=== PATIENT | male | born 1950 | race Native Hawaiian/Other Pacific Islander ===

== ENCOUNTER 2016-05-30 09:58 | Outpatient (CLI) | payer OTHER ==
[~2016-05-30 09:58] MED LIST: ACEBUTOLOL PO; CARBINOXAMIN OR; CYCL10TA35 PO; DICL75TA4 PO; DIOVAN HC1 PO; GEMFIBROZIL PO; LIPITOR80 MG PO; QUININE SULFAT324 MG PO; TAMS0.4C PO; TRAM50TA PO; [UNRECOGNIZED DRUG - OTHER] PO
[2016-05-30 11:00] LABS: PLATELET COUNT 302 K/uL (142-355)
== END 2016-05-30 20:08 | disposition home or self-care (01) ==
LOC: LABW 09:58
PROVIDERS: Internal Medicine Gastroenterology
DX: K50.10 Crohn's disease of large intestine without complications (principal); D64.9 Anemia, unspecified
CPT/HCPCS: 36415; 80053; 82306; 82607; 82728; 82746; 83540; 83550; 83993; 85027

== ENCOUNTER 2016-08-25 09:10 | Outpatient (CLI) | payer OTHER ==
[2016-08-25 09:53] LABS: PLATELET COUNT 468 K/uL (142-355)
[2016-08-25 10:03] LABS: POTASSIUM 3.9 mmol/L (3.6-5.2)
== END 2016-08-25 11:00 | disposition home or self-care (01) ==
LOC: LABW 09:10
PROVIDERS: Internal Medicine Gastroenterology
DX: K50.10 Crohn's disease of large intestine without complications (principal)
CPT/HCPCS: 36415; 80053; 82542; 82728; 83540; 83550; 83890; 83892; 83896; 83900; 83912; 83993; 85027

== ENCOUNTER 2016-09-20 13:10 | Outpatient (CLI) | payer OTHER ==
[~2016-09-20] VITALS: Ht 182.9 cm; Wt 107.5 kg
[2016-09-20 13:20] VITALS: BP 122/75; TEMP 98.4
[2016-09-20 14:50] VITALS: BP 115/69
== END 2016-09-20 14:50 | disposition home or self-care (01) ==
LOC: INF 13:10
DX: K50.90 Crohn's disease, unspecified, without complications (principal); D50.8 Other iron deficiency anemias
CPT/HCPCS: 96365; J2916

== ENCOUNTER 2016-09-21 17:19 | Outpatient (CLI) | payer OTHER | END 2016-09-21 18:20 | disposition home or self-care (01) | LOC: LABW 17:19 | DX: K50.10 Crohn's disease of large intestine without complications (principal); Z79.899 Other long term (current) drug therapy; Z51.81 Encounter for therapeutic drug level monitoring | CPT/HCPCS: 36415; 86480; 86706 ==

== ENCOUNTER 2016-09-27 10:49 | Outpatient (CLI) | payer OTHER ==
[~2016-09-27] VITALS: Ht 182.9 cm; Wt 107.5 kg
[2016-09-27 11:00] VITALS: BP 133/70; TEMP 98.1
[2016-09-27 12:45] VITALS: BP 129/68
== END 2016-09-27 19:11 | disposition home or self-care (01) ==
LOC: INF 10:49
DX: K50.10 Crohn's disease of large intestine without complications (principal)
CPT/HCPCS: 96365; J2916

== ENCOUNTER 2016-10-04 10:49 | Outpatient (CLI) | payer OTHER ==
[~2016-10-04] VITALS: Ht 182.9 cm; Wt 107.5 kg
[2016-10-04 11:00] VITALS: BP 143/77; TEMP 98.3
[2016-10-04 12:40] VITALS: BP 125/73; TEMP 98.3
== END 2016-10-04 13:00 | disposition home or self-care (01) ==
LOC: INF 10:49
DX: K50.10 Crohn's disease of large intestine without complications (principal)
CPT/HCPCS: 96365; J2916

== ENCOUNTER 2016-12-01 09:55 | Outpatient (CLI) | payer OTHER ==
[2016-12-01 10:53] LABS: PLATELET COUNT 282 K/uL (142-355)
[2016-12-01 11:20] LABS: POTASSIUM 3.5 mmol/L (3.6-5.2)
== END 2016-12-01 10:55 | disposition home or self-care (01) ==
LOC: LABW 09:55
PROVIDERS: Physician Assistant
DX: D50.8 Other iron deficiency anemias (principal); K50.10 Crohn's disease of large intestine without complications
CPT/HCPCS: 36415; 80053; 82728; 83540; 83550; 85027

== ENCOUNTER 2017-02-10 10:51 | Outpatient (CLI) | payer OTHER ==
[2017-02-10 11:56] LABS: PLATELET COUNT 269 K/uL (142-355)
[2017-02-10 12:12] LABS: POTASSIUM 4.2 mmol/L (3.6-5.2)
== END 2017-02-10 19:07 | disposition home or self-care (01) ==
LOC: LABW 10:51
PROVIDERS: Internal Medicine Gastroenterology
DX: D50.8 Other iron deficiency anemias (principal); K50.10 Crohn's disease of large intestine without complications
CPT/HCPCS: 36415; 80053; 82607; 82728; 82746; 83540; 83550; 85027; 86140

== ENCOUNTER 2017-03-28 11:05 | Outpatient (CLI) | payer OTHER | END 2017-03-28 12:05 | disposition home or self-care (01) | LOC: RAD 11:05 | DX: M54.12 Radiculopathy, cervical region (principal) ==

== ENCOUNTER 2017-06-26 11:21 | Outpatient (CLI) | payer OTHER ==
[2017-06-26 11:38] LABS: PLATELET COUNT 309 K/uL (142-355)
[2017-06-26 12:45] LABS: POTASSIUM 3.4 mmol/L (3.6-5.2)
== END 2017-06-26 19:21 | disposition home or self-care (01) ==
LOC: LABW 11:21
PROVIDERS: Internal Medicine Gastroenterology
DX: K50.10 Crohn's disease of large intestine without complications (principal); Z13.820 Encounter for screening for osteoporosis; R79.0 Abnormal level of blood mineral
CPT/HCPCS: 36415; 80053; 82728; 83540; 83550; 85027; 86140

== ENCOUNTER 2017-12-08 09:38 | Outpatient (CLI) | payer OTHER ==
[2017-12-08 10:37] LABS: PLATELET COUNT 233 K/uL (142-355)
[2017-12-08 10:48] LABS: POTASSIUM 3.9 mmol/L (3.6-5.2)
== END 2017-12-08 19:38 | disposition home or self-care (01) ==
LOC: LABW 09:38
PROVIDERS: Internal Medicine Gastroenterology
DX: K50.80 Crohn's disease of both small and large intestine without complications (principal)
CPT/HCPCS: 36415; 80053; 82306; 82607; 82746; 85027; 85651; 86140

== ENCOUNTER 2018-01-25 10:45 | Outpatient (CLI) | payer OTHER | END 2018-01-25 20:34 | disposition home or self-care (01) | LOC: RAD 10:45 | DX: S93.402A Sprain of unspecified ligament of left ankle, initial encounter (principal) ==

== ENCOUNTER 2018-04-30 11:04 | Outpatient (CLI) | payer OTHER ==
[2018-04-30 11:22] LABS: PLATELET COUNT 209 K/uL (142-355)
[2018-04-30 12:11] LABS: POTASSIUM 3.4 mmol/L (3.6-5.2)
== END 2018-04-30 20:26 | disposition home or self-care (01) ==
LOC: LABW 11:04
PROVIDERS: Internal Medicine Gastroenterology
DX: K50.80 Crohn's disease of both small and large intestine without complications (principal)
CPT/HCPCS: 36415; 80053; 82306; 82607; 82746; 85027; 85651; 86140

== ENCOUNTER 2019-06-20 10:34 | Emergency (ER) | payer OTHER ==
[~2019-06-20] VITALS: Ht 180.3 cm; Wt 106.1 kg
[2019-06-20 10:47] VITALS: BP 167/94; TEMP 98.1
== END 2019-06-20 12:11 | disposition home or self-care (01) ==
LOC: ED 10:34
DX: K11.21 Acute sialoadenitis (principal)
CPT/HCPCS: 96372; 99282; J2270

== ENCOUNTER 2019-10-28 10:26 | Outpatient (CLI) | payer OTHER | END 2019-10-28 21:49 | disposition home or self-care (01) | LOC: RAD 10:26 | DX: M26.621 Arthralgia of right temporomandibular joint (principal) ==

== ENCOUNTER 2019-11-06 09:20 | Outpatient (CLI) | payer OTHER ==
[2019-11-06 14:14] LABS: PLATELET COUNT 255 K/uL (142-355)
[2019-11-06 17:14] LABS: POTASSIUM 3.7 mmol/L (3.6-5.2)
== END 2019-11-06 20:23 | disposition home or self-care (01) ==
LOC: LABW 09:20
PROVIDERS: Internal Medicine Gastroenterology
DX: K50.10 Crohn's disease of large intestine without complications (principal); Z79.899 Other long term (current) drug therapy; E55.9 Vitamin D deficiency, unspecified
CPT/HCPCS: 36415; 80053; 82306; 85027; 86140; 86480; 86704; 86706

== ENCOUNTER 2020-02-15 09:45 | Outpatient (CLI) | payer OTHER ==
[2020-02-15 10:14] LABS: POTASSIUM 4.3 mmol/L (3.6-5.2)
== END 2020-02-15 19:06 | disposition home or self-care (01) ==
LOC: RAD 09:45
PROVIDERS: Nurse Practitioner Family
DX: K59.00 Constipation, unspecified (principal); R10.9 Unspecified abdominal pain
CPT/HCPCS: 80053; 82150; 83690

== ENCOUNTER 2020-09-07 12:21 | Observation (INO) | payer OTHER ==
[~2020-09-07] VITALS: Ht 156.2 cm; Wt 104.8 kg
[2020-09-07 12:43] VITALS: BP 143/82; TEMP 97.7
[2020-09-07 13:16] LABS: PLATELET COUNT 204 K/uL (142-355)
[2020-09-07 13:31] LABS: POTASSIUM 4.5 mmol/L (3.6-5.2); SODIUM 136 mmol/L (136-145)
[2020-09-07 14:00] VITALS: BP 143/82; TEMP 97.7; Ht 156.2 cm; Wt 104.8 kg
--- NOTE | 2020-09-07 14:00 | NUR ---
PATIENT ADMITTED DIRECT ADMIT FROM OFFICE. PATIENT ASSESSMENT COMPLETED. IV X2 ATTEMPT WITH SUCCESSFUL 20G TO THE LEFT FOREARM. PATIENT ORIENTED TO ROOM AND CALL LIGHT. PATIENT REPORTS NO VOMITING OR NAUSEA AT TIME OF ADMISSION. PATIENT INSTRUCTED WHEN HE HAD A BOWEL MOVEMENT TO GO IN THE HALF HAD TO COLLECT SPECIMEN AND A URINE SAMPLE. PATIENT VOICED UNDERSTANDING. PATIENT PALCED ON TELE AND CONTINUOUS PULSE OX. BELONGINGS AT THE BEDSIDE AND FAMILY IS A WELL.
[2020-09-07 16:00] VITALS: BP 125/59; TEMP 97.8
[2020-09-07] MEDS ORDERED: LANTUS SOL100 UNIT/M SC (16:13)
[2020-09-07] MEDS ORDERED: PANTOPRAZOLE 40MG TA PO (16:14)
[2020-09-07] MEDS ORDERED: GLIP10TA55 PO (16:15)
[2020-09-07] MEDS ORDERED: AZATHIOPRINE50 MG PO (16:18)
[2020-09-07] MEDS ORDERED: OZEMPIC2 MG/1.5 M SC (16:22)
[2020-09-07] MEDS ORDERED: TRAMADOL HYDROC50 MG PO (16:24)
--- NOTE | 2020-09-07 17:00 | NUR ---
LABS AND RESULTS REPORTED TO . NEW ORDERS GIVEN TO START HOME MEDICATIONS AND O&P TEST TO STOOL THAT WAS COLLECTED.
[2020-09-07 19:41] VITALS: BP 131/68; TEMP 98.2
[2020-09-07 23:48] VITALS: BP 114/69; TEMP 98.2
--- NOTE | 2020-09-07 23:48 | NUR ---
LATE ENTRY FROM 2100: SPECIAL EDUCATION TEACHER CALLED DR ONEIL AND ASKED HER IF SHE HAD ANY OTHER ORDERS REGUARDING THE PATIENT NEW C-DIFF STATUS. GAVE NO NEW ORDERS AT THIS TIME.
--- NOTE | 2020-09-07 23:51 | NUR ---
PATIENT RESTING QUIETLY. DENIES ANY PAIN
--- NOTE | 2020-09-08 03:15 | NUR ---
PATIENT IS RESTING QUIETLY. DENIES NAY PAIN
[2020-09-08 03:59] VITALS: BP 111/67; TEMP 98.1
--- NOTE | 2020-09-08 07:02 | NUR ---
Patient was admitted with abdominal pain, nausea, vomiting, diverticulitis and RD read all MD's notes and is 5'1.5 inches and weight is at 231.2 lbs. and is a 70YOM and has high cholesterol and reviewed all medicaittions and is receiving insulin, glipizide, and other multiple medicaitons and labs reveal WBC, BUN, Creat, gl 252,AST, T Protein all elevated and was NPO and was receiving Prcal with IV medicaitons and read MD's notes for more information and detials-DARI boyce. Has Dx. of AKF, dehydration, anorexia, N/V, HTN, COPD, tobacco use, CKD Stage III, Hyperlipidemia. IBW = 110+/-10% 99 to 121 lbs.) and Kcal needs for IBW = x 30 = 1500, x 35 = 1750, x 40 = 2000 kcal/day, protein needs x 1.0 = 50 and up to 1.5 = 75 grams per day and fluids x 30 = 1500 and x 40 = 2000 ml/cc per day. Weight is at 231.2 and BMI = 42.9 and is Class III Obesity and is 210% of IBW. RD Recommendations: 1-Monitor Labs 2-PT to work with the patient as tolerated 3-OT to work with the patient as tolerated 4-[employer] food preferneces and offer substitutes with all meals 5-Increase fluids as tolerated per MD d/t Dx. 6-Make sure hydrated 7-CLD should not be on >24 hours 8-Advance to a FLD not on >48 hours 9Advnace to solid foods and may want to try a 1500 or 1800 Calorie High Fiber diet and if will follow add Low Fat Low Cholesterol or cardiac renal but if won't follow have patient ot sign a dietar refusal form
[2020-09-08 08:00] VITALS: BP 98/60; TEMP 97.4
--- NOTE | 2020-09-08 08:00 | NUR ---
ORDERS PLACED FOR LABS THIS MORNING TO FOLLOW UP ON ABDNORMAL RESULTS FROM YESTERDAY THAT INCLUDED ELEVATED WBC, GLUCOSE, AST.
[2020-09-08 08:30] LABS: PLATELET COUNT 171 K/uL (142-355)
[2020-09-08 08:56] LABS: POTASSIUM 3.6 mmol/L (3.6-5.2)
[2020-09-08 12:00] VITALS: BP 122/75; TEMP 97.4
--- NOTE | 2020-09-08 14:10 | NUR ---
PATIENT GIVEN DISCHAGE INSTRUCTIONS WITH PRESENT IN THE ROOM. PATIENT ENCOURAGED TO INCREASE FLUID INTAKE AND FOLLOW UP WITH ON Monday09/08/20 AT 1100 FOR REPEAT CMP. PATIENT ALSO ADVISED IF HE CONTINUED WITH ANY SEVERE ABDOMINAL PAIN, DIARRHEA, NAUSEA OR VOMITING. IV 20 G REMOVED FROM THE LEFT FOREARM AND SECURED WITH TAPE. PATIENT NOTED WITH SOME BLEEDING AFTER IV REMOVED WITH TIP INTACT AREA CLEANED AND SECURED WITH 4X4 FOLLOWED BY TAYLOR. PATIENT TAKEN VIA WHEELCHAIR TO FRONT ER ENTRANCE IN NO ACUTE DISTRESS WITH AT HIS SIDE.
== END 2020-09-08 14:10 | disposition home or self-care (01) ==
LOC: MED/SURG 12:21
PROVIDERS: ADMIT Family Medicine; ATTEND Family Medicine
DX: K50.90 Crohn's disease, unspecified, without complications (principal); R11.10 Vomiting, unspecified; E13.65 Other specified diabetes mellitus with hyperglycemia
CPT/HCPCS: 80053; 81000; 82550; 82948; 83735; 84100; 84439; 84443; 84484; 85027; 85610; 87015; 87040; 87045; 87324; 87328; 87329; 87449; 87635; 87899; 93005; 96365; 96366; 96367; 96372; 96375; 99220; G0378; G0379; J0744; J1815; J2405; J2543; J3475; Q9963; U0003

== ENCOUNTER 2021-01-21 10:59 | Inpatient (IN) | payer OTHER ==
[~2021-01-21] VITALS: Ht 175.3 cm; Wt 100.5 kg
[~2021-01-21 10:59] MED LIST changes: +AZATHIOPRINE50 MG PO; +GLIP10TA55 PO; +LANTUS SOL100 UNIT/M SC; +OZEMPIC2 MG/1.5 M SC; +PANTOPRAZOLE 40MG TA PO; +TRAMADOL HYDROC50 MG PO
[2021-01-21 12:46] LABS: PLATELET COUNT 278 K/uL (142-355)
[2021-01-21 13:06] LABS: POTASSIUM 4.1 mmol/L (3.6-5.2); SODIUM 133 mmol/L (136-145)
[2021-01-21 15:34] VITALS: BP 101/66; TEMP 97.9; Ht 175.3 cm; Wt 100.5 kg
--- NOTE | 2021-01-21 16:32 | NUR ---
PT FINSHED ORAL CONTRAST AT 1615. RAD NOTIFIED.
[2021-01-21 20:00] VITALS: BP 147/72; TEMP 98.3
--- NOTE | 2021-01-21 20:19 | NUR ---
PT VOMITED APPROX 1000 ML OF DARK BROWN EMESIS. PT STATED THAT HE THREW UP THE CONTRAST AFTER THE CT. MEDICATED PT WITH ZOFRAN 4 MG IVSP.
--- NOTE | 2021-01-21 20:30 | NUR ---
PT WAS GIVEN REGLAN 10 MG IVSP GIVEN. PT DOES HAVE BOWEL SOUND IN ALL 4 QUADRANTS. NO VOMITING AT THIS TIME.
[2021-01-22 00:09] VITALS: BP 85/55; TEMP 98.5
--- NOTE | 2021-01-22 03:55 | NUR ---
PT HAS HAD CIPRO 400 MG IVPB AND ZOSYN IVPB ORDERED. PT CONTINUES TO REST WITH EYES CLOSED. PT WITHOUT NAUSEA/VOMITING OR COMPLAINTS OF PAIN.
[2021-01-22 04:00] VITALS: BP 97/62; TEMP 98.4
--- NOTE | 2021-01-22 05:54 | NUR ---
PT IS IN THE BATHROOM.PT STATES THAT HE IS FEELING BETTER NOW. PT STATES THAT HE HAS HAD 4 BM THIS SHIFT.
[2021-01-22 07:21] LABS: PLATELET COUNT 257 K/uL (142-355)
[2021-01-22 07:23] LABS: POTASSIUM 3.7 mmol/L (3.6-5.2)
[2021-01-22 08:00] VITALS: BP 113/66; TEMP 97.8
[2021-01-22 12:00] VITALS: BP 107/69; TEMP 97.6
[2021-01-22 14:04] LABS: PLATELET COUNT 237 K/uL (142-355)
[2021-01-22 14:22] LABS: POTASSIUM 3.4 mmol/L (3.6-5.2)
[2021-01-22 16:00] VITALS: BP 129/70; TEMP 98
--- NOTE | 2021-01-22 17:51 | NUR ---
PT SITTING UP IN BED TALKING ON CELLPHONE. DENIES ANY PAIN/DISCOMFORT. PT C/O DECREASED URINE OUTPUT. PTS DIET CHANGED FROM NPO TO CLEAR LIQUIDS. IV SITE TO LAC INTACT WITH NO SWELLING OR REDNESS NOTED. ENCOURAGED INCREASE OF PO FLUIDS. PT HAS NOT HAD ANY N/V THIS SHIFT. PT COMPLIANT WITH MEDS AND TREATMENT. NO VOICED COMPLAINTS.
[2021-01-22 20:00] VITALS: BP 119/63; TEMP 98
[2021-01-23] VITALS: BP 109/58; TEMP 99.2
[2021-01-23 04:00] VITALS: BP 137/73; TEMP 97.6
[2021-01-23 04:13] LABS: PLATELET COUNT 220 K/uL (142-355)
[2021-01-23 04:42] LABS: POTASSIUM 3.8 mmol/L (3.6-5.2)
[2021-01-23 08:00] VITALS: BP 176/92; TEMP 98.1
[2021-01-23 12:00] VITALS: BP 145/80; TEMP 97.3
--- NOTE | 2021-01-23 14:58 | NUR ---
PT AWAKE AND ALERT. PT DENIES ANY PAIN/DISCOMFORT TODAY. STATED "I RESTED BETTER LAST NIGHT THAN I HAVE THE LAST FEW NIGHTS." PT WAS CHANGED FROM SOFT DIET TO NPO STATUS PER PCP PRIOR TO BREAKFAST. PT ANXIOUS TO GO HOME,REQUESTED TO TALK TO HIS PCP. IVF INFUSING AT 125ML/HR OF NS ORDERED IN THE AM. PER PCP PTS IVF CHANGED TO PRO-KRISTINE AT 83ML/HR AND RESTART LEVEMIR 20 UNITS QPM AND ORDERS SCANNED TO PHARMAY AND ON EMAR. PT WANTS TO SIGN OUT OF FACILITY AMA. REFUSES TO "SPEND ANOTHER NIGHT IN THE HOSPITAL." PT POLITE AND RESPECTFUL BUT IS READY TO GO HOME. NAD NOTED. IV SITE TO LAC INTACT WITH NO SWELLING OR REDNESS NOTED. PRO-KRISTINE INFUSING ORDERED.
[2021-01-23 16:00] VITALS: BP 162/85; TEMP 97.9
--- NOTE | 2021-01-23 19:14 | NUR ---
PT REFUSED TX AND WANTED TO SIGN "AMA" FORM TO GO HOME. PCP CONSULTED WITH PT AT BEDSIDE AND PT AGREED TO BE COMPLIANT WITH TX AND STAY AT FACILITY. PTS IVF PRO-KRISTINE INFUSING AT 83 ML/HR ORDERED. PT ON NPO STATUS AND AGREES TO BE COMPLIANT. NO N/V OR PAIN/DISCOMFORT VOICED..
[2021-01-23 20:00] VITALS: BP 142/84; TEMP 98
[2021-01-24 00:23] VITALS: BP 130/69; TEMP 97.5
[2021-01-24 04:00] VITALS: BP 122/63; TEMP 98.3
[2021-01-24 05:14] LABS: PLATELET COUNT 217 K/uL (142-355)
[2021-01-24 05:29] LABS: POTASSIUM 4.1 mmol/L (3.6-5.2)
[2021-01-24 08:00] VITALS: BP 127/67; TEMP 97.8
--- NOTE | 2021-01-24 08:30 | NUR ---
PT LAYING IN BED WATCHING TV. DENIES ANY PAIN/DISCOMFORT. PT HAD A BM X1 THIS AM, SMALL AND LOOSE STOOLS. PT CONTINUES TO BE ON NPO STATUS. BOWEL SOUNDS HYPOACTIVE. ABDOMEN SOFT AND NON-TENDER. IV SITE TO LEFT ARM INTACT WITH NO SWELLING OR REDNESS NOTED. NO VOICED COMPLAINTS.
[2021-01-24 12:00] VITALS: BP 134/75; TEMP 97.8
--- NOTE | 2021-01-24 13:33 | NUR ---
PTS IV SITE TO LEFT FA INFILTRATED. NEW IV SITE TO RIGHT WRIST WITH 20GA X 1 ATTEMPT. DENIES ANY PAIN/DISCOMFORT. PT SITTING IN RECLINER WATCHING TV. NO VOICED COMPLAINTS.
[2021-01-24 16:00] VITALS: BP 162/84; TEMP 97.9
--- NOTE | 2021-01-24 18:05 | NUR ---
PT SITTING IN THE RECLINER IN ROOM WATCHING TV. PCP VISITED PT AT BEDSIDE THIS EVENING. PT DENIES ANY PAIN/DISCOMFORT. PTS DIET CHANGED TO CLEAR LIQUIDS. PTS BOWEL SOUNDS WERE NOT PRESENT WHEN ASSESSED BY PCP. PTS BOWEL SOUNDS HYPOACTIVE IN THE AM AFTER HIS BM. NO VOICED COMPLAINTS.
[2021-01-24 20:00] VITALS: BP 151/78; TEMP 97.6
[2021-01-25 00:53] VITALS: BP 139/67; TEMP 97.8
--- NOTE | 2021-01-25 02:40 | NUR ---
PATIENT UP TO BATHROOM WITHOUT ANY DIFFICULTY, PATIENT HAD A SMALL SOFT BOWEL MOVEMENT AND STATES HES PASSING GAS, BOWEL SOUNDS HEARD BUT STILL HYPOACTIVE. PATIENT DENIES ANY NAUSEA, VOMITING, OR PAIN AT THIS TIME. NO DISTRESS NOTED. CALL LIGHT WITHIN REACH. WILL CONTINUE TO MONITOR.
[2021-01-25 04:00] VITALS: BP 167/80; TEMP 97.8
[2021-01-25 06:01] LABS: PLATELET COUNT 221 K/uL (142-355)
[2021-01-25 06:22] LABS: POTASSIUM 4.4 mmol/L (3.6-5.2)
[2021-01-25 08:00] VITALS: BP 143/79; TEMP 98
--- NOTE | 2021-01-25 11:00 | NUR ---
PT STATES HE IS HAVING CT TODAY FOR DISCHARGE VS TRANSFER TO FOLLOW UP ON SBO. INSTRUCTED PT TO BE NPO OF NOW SO THAT WHEN ORDERS REC FOR CT THE PROCESS WOULD NOT BE DELAYED. PT STATES ABD PAIN BETTER, NO VOMITING AND NO NAUSEA
[2021-01-25 12:00] VITALS: BP 150/86; TEMP 97.6
[2021-01-25 16:00] VITALS: BP 171/75; TEMP 97.6
--- NOTE | 2021-01-25 16:07 | NUR ---
TO RAD FOR CT OF ABD WITH CONTRAST
--- NOTE | 2021-01-25 16:30 | NUR ---
RETURNED FROM RAD VIA WC
[2021-01-25 20:15] VITALS: BP 173/92; TEMP 97.5
[2021-01-26] VITALS: BP 120/81; TEMP 97.8
--- NOTE | 2021-01-26 01:28 | NUR ---
LATE ENTRY: UPON THE BEGINING OF THE SHIFT BEVELING MACHINE OPERATOR MADE ROUNDS ON THIS PATIENT WITH DR ONEIL. PATIENT WAS EDUCATED ABOUT HOW HIS DISEASE PROCESS. AND THE UPCOMING CONSULTATION. PATIENT VERBALIZED UNDERSTANDING BUT ALSO EXPRESSED FRUSTION AT " HAVEING TO STAY AT THE HOSPITAL SO LONG."
[2021-01-26 04:00] VITALS: BP 143/81; TEMP 97.6
[2021-01-26 05:39] LABS: PLATELET COUNT 220 K/uL (142-355)
[2021-01-26 05:51] LABS: POTASSIUM 4.9 mmol/L (3.6-5.2)
--- NOTE | 2021-01-26 06:24 | NUR ---
PATIENT REQUESTED A NEW IV SITE BECAUSE HE IS RIGHT HANDED AND WANTED ONE IN HIS LEFT. YUSUF HAS A 20G IV TO LEFT AC AFTER ONE STICK. RIGHT 20G TO THE WRIST IS SALINE LOCKED AND THE OTHER HAS THE PROCAL RUNNING
[2021-01-26 08:00] VITALS: BP 153/85; TEMP 97.7
== END 2021-01-26 12:40 | disposition left against medical advice (07) | DRG 389 ==
LOC: MED/SURG 10:59
PROVIDERS: ADMIT Family Medicine; ATTEND Family Medicine
DX: K56.699 Other intestinal obstruction unspecified as to partial versus complete obstruction (principal); N17.8 Other acute kidney failure; E86.0 Dehydration; E11.9 Type 2 diabetes mellitus without complications; F41.8 Other specified anxiety disorders; E78.49 Other hyperlipidemia; Z91.19 Patient's noncompliance with other medical treatment and regimen; I12.9 Hypertensive chronic kidney disease with stage 1 through stage 4 chronic kidney disease, or unspecified chronic kidney disease; N18.30 Chronic kidney disease, stage 3 unspecified
CPT/HCPCS: 36415; 80053; 81000; 82272; 82550; 83735; 84100; 84484; 85027; 86140; 87015; 87040; 87045; 87635; 87899; 93005; 96365; 96366; 96367; 96375; J0744; J1815; J2405; J2543; J2765; J2920; J3475; J3490; Q9963; U0003

== ENCOUNTER 2021-03-26 15:20 | Outpatient (CLI) | payer OTHER | END 2021-03-26 20:37 | disposition home or self-care (01) | LOC: LABW 15:20 | PROVIDERS: ATTEND Internal Medicine Gastroenterology | DX: R19.7 Diarrhea, unspecified (principal) | CPT/HCPCS: 83993; 87493 ==

== ENCOUNTER 2021-04-01 14:28 | Outpatient (CLI) | payer OTHER | END 2021-04-01 18:58 | disposition home or self-care (01) | LOC: LABW 14:28 | PROVIDERS: ATTEND Internal Medicine Gastroenterology | DX: K50.90 Crohn's disease, unspecified, without complications (principal); Z79.899 Other long term (current) drug therapy | CPT/HCPCS: 36415; 86480 ==